=== PATIENT | female | born 1985 | race Asian ===

== ENCOUNTER 2020-04-30 00:45 | Emergency (ER) | payer SELFPAY ==
[~2020-04-30] VITALS: Ht 165.1 cm; Wt 54.5 kg
[2020-04-30 00:46] VITALS: BP 118/68
== END 2020-04-30 01:26 | disposition home or self-care (01) ==
LOC: EMS 00:46
DX: S80.12XA Contusion of left lower leg, initial encounter (principal); W54.0XXA Bitten by dog, initial encounter; Y93.89 Activity, other specified; Y92.89 Other specified places as the place of occurrence of the external cause; Y99.8 Other external cause status
CPT/HCPCS: Z7502